=== PATIENT | female | born 1955 | race Caucasian/White ===

== ENCOUNTER 2023-11-27 11:25 | Emergency (ER) | payer BC, MEDICAID ==
[~2023-11-27] VITALS: Ht 167.6 cm; Wt 81.2 kg
[2023-11-27] MEDS ORDERED: ROCURONIUM BROMIDE 50 MG/5 ML VIAL IV ONE (11:26)
[2023-11-27] MEDS ORDERED: ETOMIDATE 20 MG/10 ML VIAL IV ONE (11:26)
[2023-11-27 11:44] LABS: BASOPHILS # (AUTO) 0.1 K/UL (0.0-0.2); EOSINOPHILS # (AUTO) 0.1 K/uL (0.0-0.7); EOSINOPHILS % (AUTO) 0.9 % (0.0-7.0); HEMATOCRIT 36.2 % (31.2-41.9); HEMOGLOBIN 12.1 g/dL (10.9-14.3); LYMPHOCYTES # (AUTO) 2.2 K/uL (0.8-4.8); LYMPHOCYTES % (AUTO) 20.6 % (20.5-51.5); MEAN CORPUSCULAR HEMOGLOBIN 28.5 uug (24.7-32.8); MEAN CORPUSCULAR HGB CONC 34 g/dL (32.3-35.6); MEAN CORPUSCULAR VOLUME 85.1 fL (75.5-95.3); MONOCYTES # (AUTO) 0.5 K/uL (0.1-1.30); MONOCYTES % (AUTO) 4.7 % (0.0-11.0); NEUTROPHILS # (AUTO) 7.8 K/uL (1.8-8.9); NEUTROPHILS % (AUTO) 72.8 % (38.5-71.5); PLATELET COUNT (AUTO) 217 K/uL (179-408); RED BLOOD CELL COUNT(AUTO) 4.26 MIL/uL (3.63-4.92); RED CELL DISTRIBUTION WIDTH 20.3 % (12.3-17.7); WHITE BLOOD COUNT (AUTO) 10.8 K/uL (3.8-11.8)
[2023-11-27] MEDS: ONDANSETRON 4 MG/2 ML VIAL IV ONE (11:45)
[2023-11-27] MEDS ORDERED: ONDANSETRON 4 MG/2 ML VIAL ONE (11:46)
[2023-11-27 11:48] LABS: DIFFERENTIAL COMMENT 1
[2023-11-27 11:51] LABS: CALCIUM 9.5 mg/dL (8.5-10.1); CARBON DIOXIDE 25 mmol/L (21-32); CHLORIDE 99 mmol/L (98-107); CREATININE 1.2 mg/dL (0.6-1.3); GLUCOSE 140 mg/dL (74-106); SODIUM SERUM 136 mmol/L (136-145); UREA NITROGEN, BLOOD 30 mg/dL (7-18)
[2023-11-27 12:01] LABS: ALANINE AMINOTRANSFERASE 211 U/L (14-59); ALKALINE PHOSPHATASE 785 U/L (50-136); AMMONIA < 10 umol/L (11-32); ASPARTATE AMINOTRANSFERASE 138 U/L (15-37); BILIRUBIN,DIRECT 0.1 mg/dL (0.0-0.2); BILIRUBIN,TOTAL 0.9 mg/dL (0.2-1.0); CHOLESTEROL 113 mg/dL (<200); HDL CHOLESTEROL 32 mg/dL (40-60); TOTAL PROTEIN, SERUM 7.9 g/dL (6.4-8.2); TRIGLYCERIDES 88 MG/DL (30-150)
[2023-11-27] MEDS: ETOMIDATE 20 MG/10 ML VIAL IV ONE (12:01)
[2023-11-27] MEDS ORDERED: FENTANYL CITRATE 100 MCG/2 ML AMPUL ONE (12:04)
[2023-11-27] MEDS ORDERED: PROPOFOL 100 ML ONE ×2 (12:05→13:11)
[2023-11-27] MEDS: FENTANYL CITRATE 100 MCG/2 ML AMPUL IV ONE (12:10)
[2023-11-27] MEDS: IV NORMAL SALINE 1000 ML BAG IV ONE ×2 (12:10→12:59)
[2023-11-27 12:13] LABS: POTASSIUM 5.4 mmol/L (3.5-5.1)
[2023-11-27] MEDS: LORAZEPAM 2 MG/1 ML VIAL IV ONE (12:15)
[2023-11-27 12:17] LABS: LACTIC ACID 2.1 mmol/L (0.4-2.0)
[2023-11-27 12:38] LABS: CALCIUM 8.6 mg/dL (8.5-10.1); CREATININE 1.1 mg/dL (0.6-1.3); POTASSIUM 4.8 mmol/L (3.5-5.1)
[2023-11-27] MEDS: levETIRAcetam IV 2,000 MG in IV DEXTROSE 5% 100 ML IV ONE (12:50)
[2023-11-27] MEDS: levoFLOXacin 750MG/D5W 150 ML IV ONE (13:00)
[2023-11-27 13:03] LABS: *BILIRUBIN,URIN NEGATIVE (NEGATIVE); *BLOOD, URINE NEGATIVE (NEGATIVE); *CLARITY,URINE SLIGHTLY CLOUDY (CLEAR); *COLOR,URINE YELLOW (YELLOW); *KETONES,URINE NEGATIVE (NEGATIVE); *PROTEIN,URINE TRACE (NEGATIVE); *UROBILINOGEN,URINE 0.2 E.U./dl (NORMAL); LEUKOCYTE ESTERASE ,URINE NEGATIVE (NEGATIVE); NITRITE, URINE NEGATIVE (NEGATIVE); UGLUCOSE NEGATIVE (NEGATIVE)
[2023-11-27 13:10] LABS: *AMPHETAMINE, URINE NEGATIVE (NEGATIVE); *BARBITURATE, URINE NEGATIVE (NEGATIVE); *BENZODIAZEPINE, URINE NEGATIVE (NEGATIVE); *CANNABINOID, URINE NEGATIVE (NEGATIVE); *COCCAINE, URINE NEGATIVE (NEGATIVE); *OPIATE, URINE POSITIVE (NEGATIVE); *PHENCYCLIDINE SCREEN,URINE NEGATIVE (NEGATIVE); FENTANYL, URINE NEGATIVE (NEGATIVE)
[2023-11-27] MEDS ORDERED: LORAZEPAM 2 MG/1 ML VIAL ONE (13:11)
[2023-11-27 13:12] LABS: THYROID STIMULATING HORMONE 3.378 mIU/mL (0.358-3.740)
[2023-11-27] MEDS: PROPOFOL 100 ML IV PRN (13:16)
[2023-11-27 13:57] LABS: BACTERIA,URINE MANY /HPF (NONE SEEN); WBC,URINE NONE SEEN /HPF (0-3)
[2023-11-27] MEDS ORDERED: levoFLOXacin 750MG/D5W 150 ML IV ONE (14:16)
[2023-11-27] MEDS ORDERED: IV NORMAL SALINE 250 ML IV ONE (14:21)
[2023-11-27] MEDS ORDERED: IOHEXOL 350 100 ML INFUS..BTL ONE (14:21)
[2023-11-27] MEDS ORDERED: SWABABLE VALVE TRANSFER SET EA MC ONE (14:21)
[2023-11-27 15:51] LABS: BAND % (MANUAL) 10 % (0-10); EOSINOPHILS % (MANUAL) 1 % (0-8); LYMPHOCYTES % (MANUAL) 23 % (20-40); MONOCYTES % (MANUAL) 7 % (2-10); NEUTROPHILS % (MANUAL) 59 % (42-75)
[2023-11-27 15:52] LABS: ANISOCYTOSIS 2+; PLATELET ESTIMATE ADEQUATE
[2023-11-27 17:05] VITALS: O2SAT 99
== END 2023-11-27 17:11 | disposition short-term general hospital (02) ==
LOC: ER 11:25
DX: I60.9 Nontraumatic subarachnoid hemorrhage, unspecified (principal); G93.40 Encephalopathy, unspecified; R11.2 Nausea with vomiting, unspecified; E86.0 Dehydration; R74.01 Elevation of levels of liver transaminase levels; E87.20 Acidosis, unspecified; R91.8 Other nonspecific abnormal finding of lung field; Z20.822 Contact with and (suspected) exposure to COVID-19; E78.5 Hyperlipidemia, unspecified; I10 Essential (primary) hypertension; J44.9 Chronic obstructive pulmonary disease, unspecified; Z88.0 Allergy status to penicillin; Z88.5 Allergy status to narcotic agent; X58.XXXA Exposure to other specified factors, initial encounter; Y93.89 Activity, other specified; Y92.89 Other specified places as the place of occurrence of the external cause; Y99.8 Other external cause status
CPT/HCPCS: 36415; 36556; 70030-TC; 70450; 71045; 83605; 84443; 84484; 85025; 85730; 87040; 93005; A4606; A4663; J1953; J1956; J2060; J2405; J3010; J3490; J7040; Q9967